=== PATIENT | female | born 1960 | race Caucasian/White ===

== ENCOUNTER 2018-06-10 06:49 | Day surgery (SDC) | payer BC ==
[~2018-06-10 06:49] MED LIST: Lactated Ringers 1,000 ML IV SCH; Lidocaine 1%/Sod Bicarbonate in NS 8.4% 1 ML Syringe IDERM PRN; Sodium Chloride 0.9% 10 ML Syringe FLUSH PRN
[2018-06-10] MEDS ORDERED: Propofol 200 MG/20 ML SDV ONE (07:14)
[2018-06-10] MEDS ORDERED: Lidocaine 1% 4 ML ONE (07:14)
[2018-06-10] MEDS ORDERED: fentaNYL 100 MCG/2 ML SDV ONE (07:14)
[2018-06-10] MEDS ORDERED: Midazolam 1 MG/ML 2 ML SDV ONE (07:14)
--- NOTE | 2018-06-10 07:26 | PCM.PREANE ---
Preanesthetic Assessment - Procedure Proposed Procedure: colonoscopy - Anesthesia/Transfusion/Family Hx Anesthesia History: Prior Anesthesia Without Reaction Family History of Anesthesia Reaction: No Transfusion History: No Prior Transfusion(s) - Review of Systems General: No Symptoms Pulmonary: No Symptoms Cardiovascular: No Symptoms Gastrointestinal: Diarrhea (occasionally) Neurological: No Symptoms Other: Reports: Diabetes - Physical Assessment NPO Status Date: 06/09/18 NPO Status Time: 23:30 Pulse: 76 O2 Sat by Pulse Oximetry: 98 Respiratory Rate: 20 Blood Pressure: 129/64 Temperature: 97.8 F Height: 5 ft 3 in Weight: 104 kg ASA Class: 2 Mental Status: Alert & Oriented x3 Airway Class: Mallampati = 1 Dentition: Reports: Partial (top and bottom), Missing Tooth/Teeth Thyro-Mental Finger Breadths: 3 Mouth Opening Finger Breadths: 3 ROM/Head Extension: Full Lungs: Clear to Auscultation, Normal Respiratory Effort Cardiovascular: Regular Rate, Regular Rhythm - Allergies Allergies/Adverse Reactions: Allergies Allergy/AdvReac Type Severity Reaction Status Date / Time cucumber Allergy throat Verified 06/09/18 14:35 closing/nausea/itchy eyes melon Allergy throat Verified 06/09/18 14:35 closing/nausea/itchy eyes pollen extracts Allergy Cannot Verified 06/09/18 14:35 Remember DUST Allergy Cannot Uncoded 06/09/18 14:35 Remember - Blood Blood Available: No - Anesthesia Plan Beta Amina: Metoprolol Med Last Dose Date: 06/10/18 Med Last Dose Time: 05:45 - Acknowledgements Anesthesia Type Planned: MAC Pt an Appropriate Candidate for the Planned Anesthesia: Yes Alternatives and Risks of Anesthesia Discussed w Pt/Guardian: Yes Pt/Guardian Understands and Agrees with Anesthesia Plan: Yes PreAnesthesia Questionnaire HEENT History: Reports: Impaired Vision Cardiovascular History: Reports: CAD (stent 2002), High Cholesterol, Hypertension Respiratory History: Reports: Sleep Apnea Gastrointestinal History: Reports: None Other Musculoskeletal History: Patient reports arthritis in bilateral feet. Neurological History: Reports: None Endocrine/Metabolic History: Reports: Diabetes, Type II, Obesity/BMI 30+ Oncologic (Cancer) History: Reports: None - Past Surgical History HEENT Surgical History: Reports: Cataract Surgery Other HEENT Surgeries/Procedures: bilateral cataract extraction woth intraocular lens' also laser eye surgery for retinopathy, also wisdom teeth extraction Other Cardiovascular Surgeries/Procedures: angiogram GI Surgical History: Reports: Colonoscopy, Other (See Below) (gastric bypass) Female Surgical History: Reports: Breast Biopsy Other Musculoskeletal Surgeries/Procedures:: Left carpal tunnel release and left ulnar nerve release 2013 done- also right carpal tunnel - SUBSTANCE USE Smoking Status *Q: Never Smoker Tobacco Use Within Last Twelve Months: No Second Hand Smoke Exposure: No Days Per Week of Alcohol Use: 1 (cup of wine a month) Recreational Drug Use History: No - HOME MEDS Home Medications: Home Meds Gabapentin 3 cap PO BID 05/29/15 [History] Insulin Aspart [NovoLOG] 0 units SQ ASDIRECTED 05/29/15 [History] Insulin Glarg,Human.Rec.Analog [LantUS Solostar] 50 units SQ BEDTIME 05/29/15 [ History] Metoprolol Tartrate [Lopressor] 1 tab PO BID 05/29/15 [History] Multivitamin [Daily Multiple Vitamin] 1 tab PO DAILY 05/29/15 [History] Simvastatin 1 tab PO QPM 05/29/15 [History] Timolol Maleate 1 drop EYEBOTH DAILY 05/29/15 [History] Valsartan [Diovan] 320 mg PO DAILY 05/29/15 [History] amLODIPine Besylate [Amlodipine Besylate] 2.5 mg PO QPM 05/29/15 [History] Aspirin [Halfprin] 81 mg PO DAILY 06/09/18 [History] Fluticasone Propionate [Flonase] 1 dose NASBOTH BID 06/09/18 [History] Liraglutide [Victoza] 1.8 mg SQ DAILY 06/09/18 [History] - CURRENT (IN HOUSE) MEDS Current Meds: Current Medications Lactated Ringer's (Ringers, Lactated) 1,000 mls @ 125 mls/hr IV ASDIRECTED RYAN Stop: 06/10/18 23:00 Lidocaine/Sodium Bicarbonate (Buffered Lidocaine 1% In Ns 8.4%) 0.25 ml IDERM ONETIME PRN PRN Reason: Prior to IV Start Stop: 06/10/18 18:00 Sodium Chloride (Saline Flush) 10 ml FLUSH ASDIRECTED PRN PRN Reason: Keep Vein Open Stop: 06/10/18 18:00 Discontinued Medications Fentanyl (Sublimaze) Confirm Administered Dose 100 mcg .ROUTE .STK-MED ONE Stop: 06/10/18 07:15 Lidocaine HCl (Xylocaine-Mpf 1%) Confirm Administered Dose 4 mls @ as directed .ROUTE .STK-MED ONE Stop: 06/10/18 07:15 Midazolam HCl (Versed 1 Mg/Ml) Confirm Administered Dose 2 mg .ROUTE .STK-MED ONE Stop: 06/10/18 07:15 Propofol (Diprivan 20 Ml) Confirm Administered Dose 200 mg .ROUTE .STK-MED ONE Stop: 06/10/18 07:15
--- NOTE | 2018-06-10 08:19 | PCM.HP ---
H&P History of Present Illness - General Date of Service: 06/10/18 Source of Information: Patient History Limitations: Reports: No Limitations - History of Present Illness Initial Comments - Free Text/Narative: 57 year old female here today for change in bowel habits with diarrhea. Last colonoscopy 9 years ago and was normal. She has had no blood in stool. She has had no recent medication changes. SHe is able to perform 4 METS of activity without chest pain. - Related Data Allergies/Adverse Reactions: Allergies Allergy/AdvReac Type Severity Reaction Status Date / Time cucumber Allergy throat Verified 06/09/18 14:35 closing/nausea/itchy eyes melon Allergy throat Verified 06/09/18 14:35 closing/nausea/itchy eyes pollen extracts Allergy Cannot Verified 06/09/18 14:35 Remember DUST Allergy Cannot Uncoded 06/09/18 14:35 Remember Home Medications: Home Meds Gabapentin 3 cap PO BID 05/29/15 [History] Insulin Aspart [NovoLOG] 0 units SQ ASDIRECTED 05/29/15 [History] Insulin Glarg,Human.Rec.Analog [LantUS Solostar] 50 units SQ BEDTIME 05/29/15 [ History] Metoprolol Tartrate [Lopressor] 1 tab PO BID 05/29/15 [History] Multivitamin [Daily Multiple Vitamin] 1 tab PO DAILY 05/29/15 [History] Simvastatin 1 tab PO QPM 05/29/15 [History] Timolol Maleate 1 drop EYEBOTH DAILY 05/29/15 [History] Valsartan [Diovan] 320 mg PO DAILY 05/29/15 [History] amLODIPine Besylate [Amlodipine Besylate] 2.5 mg PO QPM 05/29/15 [History] Aspirin [Halfprin] 81 mg PO DAILY 06/09/18 [History] Fluticasone Propionate [Flonase] 1 dose NASBOTH BID 06/09/18 [History] Liraglutide [Victoza] 1.8 mg SQ DAILY 06/09/18 [History] Past Medical History HEENT History: Reports: Impaired Vision Cardiovascular History: Reports: CAD (stent 2002), High Cholesterol, Hypertension Respiratory History: Reports: Sleep Apnea Gastrointestinal History: Reports: None Other Musculoskeletal History: Patient reports arthritis in bilateral feet. Neurological History: Reports: None Endocrine/Metabolic History: Reports: Diabetes, Type II, Obesity/BMI 30+ Oncologic (Cancer) History: Reports: None - Past Surgical History HEENT Surgical History: Reports: Cataract Surgery Other HEENT Surgeries/Procedures: bilateral cataract extraction woth intraocular lens' also laser eye surgery for retinopathy, also wisdom teeth extraction Other Cardiovascular Surgeries/Procedures: angiogram GI Surgical History: Reports: Colonoscopy, Other (See Below) (gastric bypass) Female Surgical History: Reports: Breast Biopsy Other Musculoskeletal Surgeries/Procedures:: Left carpal tunnel release and left ulnar nerve release 2013 done- also right carpal tunnel Social & Family History - Tobacco Use Smoking Status *Q: Never Smoker Second Hand Smoke Exposure: No - Caffeine Use Caffeine Use: Reports: None - Alcohol Use Days Per Week of Alcohol Use: 1 (cup of wine a month) - Recreational Drug Use Recreational Drug Use: No Drug Use in Last 12 Months: No H&P Review of Systems - Review of Systems: Review Of Systems: See Below General: Reports: No Symptoms Pulmonary: Reports: No Symptoms Cardiovascular: Reports: No Symptoms Gastrointestinal: Reports: No Symptoms Exam - Exam Exam: See Below - Vital Signs Vital Signs: Last Vital Signs Temp 36.6 C 06/10/18 07:31 Pulse 76 06/10/18 07:31 Resp 20 06/10/18 07:31 BP 129/64 06/10/18 07:31 Pulse Ox 98 06/10/18 07:31 Weight: 104.78 kg - Exam General: Alert, Oriented Neck: Supple, Trachea Midline Lungs: Clear to Auscultation, Normal Respiratory Effort Cardiovascular: Regular Rate, Regular Rhythm GI/Abdominal Exam: Normal Bowel Sounds, Soft, Non-Tender - Patient Data Lab Results Last 24 hrs: Laboratory Results - last 24 hr 06/10/18 Range/Units 07:26 POC Glucose 91 (70-105) mg/dL - Problem List (1) Change in bowel habits SNOMED Code(s): 351668460, 831353239 ICD Code: R19.4 - CHANGE IN BOWEL HABIT Status: Acute Current Visit: Yes (2) Diarrhea SNOMED Code(s): 51166697 ICD Code: R19.7 - DIARRHEA, UNSPECIFIED Status: Acute Current Visit: Yes Problem List Initiated/Reviewed/Updated: Yes Orders Last 24hrs: Active Orders 24 hr Category Date Time Status Peripheral IV Care [RC] . DIRECTED Care 06/10/18 00:01 Active Verify Patient Consent Obtain [RC] ASDIRECTED Care 06/10/18 00:01 Active Lactated Ringers [Ringers, Lactated] 1,000 ml Med 06/10/18 00:01 Active IV ASDIRECTED Lidocaine 1%/Sod Bicarbonate [Buffered Lidocaine 1% in Med 06/10/18 00:01 Active NS 8.4%] 0.25 ml IDERM ONETIME PRN Sodium Chloride 0.9% [Saline Flush] Med 06/10/18 00:01 Active 10 ml FLUSH ASDIRECTED PRN Medication Administration Instruction [OM.PC] Routine Oth 06/10/18 00:01 Ordered Peripheral IV Insertion Adult [OM.PC] Routine Oth 06/10/18 00:01 Ordered Medication Orders Lactated Ringer's (Ringers, Lactated) 1,000 mls @ 125 mls/hr IV ASDIRECTED RYAN Stop: 06/10/18 23:00 Last Admin: 06/10/18 07:38 Dose: 125 mls/hr Lidocaine/Sodium Bicarbonate (Buffered Lidocaine 1% In Ns 8.4%) 0.25 ml IDERM ONETIME PRN PRN Reason: Prior to IV Start Stop: 06/10/18 18:00 Last Admin: 06/10/18 07:38 Dose: 0.25 ml Sodium Chloride (Saline Flush) 10 ml FLUSH ASDIRECTED PRN PRN Reason: Keep Vein Open Stop: 06/10/18 18:00 Assessment/Plan Comment:: 57 year old female here today for diagnostic colonoscopy for change in bowel habits with diarrhea. We discussed benefits and risks of procedure. Proceed with colonoscopy.
--- NOTE | 2018-06-10 08:56 | PCM48HPAN ---
Post Anesthesia Note - EVALUATION WITHIN 48HRS OF ANESTHETIC Vital Signs in Normal Range: Yes Patient Participated in Evaluation: Yes Respiratory Function Stable: Yes Airway Patent: Yes Cardiovascular Function Stable: Yes Hydration Status Stable: Yes Pain Control Satisfactory: Yes Nausea and Vomiting Control Satisfactory: Yes Mental Status Recovered: Yes Pulse Rate: 72 SaO2: 93 Resp Rate: 16 Temperature: 98.1 F Blood Pressure: 98/68
--- NOTE | 2018-06-10 08:57 | PCM.OPNOTE ---
- General Post-Op/Procedure Note Date of Surgery/Procedure: 06/10/18 Operative Procedure(s): Colonoscopy with cold snare polypectomy and cold forceps biopsy Findings: 3 mm sigmoid polyp Post-Op Diagnosis: 3 mm sigmoid polyp Anesthesia Technique: MAC Primary Surgeon: Javi Hill Anesthesia Provider: Lakesha Mathur EBL in mLs: 5 Complications: None Condition: Good Free Text/Narrative:: AFter the patient gave verbal and written consent she was placed on blood pressure and pulse ox monitoring. She was given IV sedation which she tolerated well. The olympus colonoscope was inserted per rectum and advanced to the cecum without difficulty. The ileocecal valve and appendiceal orfice were imaged documenting cecal intubation. The scope was slowly withdrawn and the mucosal surfaces were carefully examined. THe prep was good, the views were good. Random cold forceps biopsy were taken throughout the colon and submitted to pathology. A 3 mm descending polyp was noted and removed with cold snare polypectomy. There was hemostasis. THe scope was then retroflexed in the rectum and removed. The patient tolerated the procedure well, there were no complications. THe patient left in satisfactory condition.
[2018-06-10 09:52] VITALS: BP 113/71
== END 2018-06-10 09:45 | disposition home or self-care (01) ==
LOC: JD.SDS 06:49
PROVIDERS: ATTEND Family Medicine
DX: R19.4 Change in bowel habit (principal); R19.7 Diarrhea, unspecified; D12.4 Benign neoplasm of descending colon; I10 Essential (primary) hypertension; I25.10 Atherosclerotic heart disease of native coronary artery without angina pectoris; G47.30 Sleep apnea, unspecified; E78.00 Pure hypercholesterolemia, unspecified; E11.9 Type 2 diabetes mellitus without complications; E66.9 Obesity, unspecified; Z68.41 Body mass index [BMI] 40.0-44.9, adult; Z79.4 Long term (current) use of insulin; Z79.82 Long term (current) use of aspirin; Z79.899 Other long term (current) drug therapy; Z91.018 Allergy to other foods; Z91.048 Other nonmedicinal substance allergy status
CPT/HCPCS: 45380; 45385; 82962; J2250; J2704; J3010; J7120; 00811; J2001

== ENCOUNTER → 2021-01-14 | Day surgery (SDC) | payer BC ==
[2021-01-14] MEDS: Brimonidine 0.2% Ophth Soln 5 ML Bottle EYERT SCH ×2 (13:00→13:48)
[2021-01-14] MEDS: Phenylephrine 2.5% Ophth Soln 2 ML Bot EYERT SCH ×2 (13:05→13:16)
[2021-01-14] MEDS: Tropicamide 1% Ophth Soln 15 ML Bottle EYERT SCH ×2 (13:10→13:20)
== END ==
LOC: JD.SDS 12:26
PROVIDERS: ATTEND Ophthalmology
DX: E11.36 Type 2 diabetes mellitus with diabetic cataract (principal); H26.491 Other secondary cataract, right eye; H02.836 Dermatochalasis of left eye, unspecified eyelid; H02.833 Dermatochalasis of right eye, unspecified eyelid; E11.3213 Type 2 diabetes mellitus with mild nonproliferative diabetic retinopathy with macular edema, bilateral; H35.373 Puckering of macula, bilateral; H16.103 Unspecified superficial keratitis, bilateral; H16.223 Keratoconjunctivitis sicca, not specified as Sjogren's, bilateral; H40.042 Steroid responder, left eye; I10 Essential (primary) hypertension; E78.00 Pure hypercholesterolemia, unspecified; Z79.4 Long term (current) use of insulin; Z79.899 Other long term (current) drug therapy; Z96.1 Presence of intraocular lens

== ENCOUNTER 2022-10-21 13:14 | Emergency (ER) | payer BC ==
[2022-10-21 13:50] VITALS: BP 144/82; PULSE 91
== END 2022-10-21 16:00 | disposition home or self-care (01) ==
LOC: JD.ED 13:14
DX: N13.2 Hydronephrosis with renal and ureteral calculous obstruction (principal); I25.10 Atherosclerotic heart disease of native coronary artery without angina pectoris; E78.00 Pure hypercholesterolemia, unspecified; I10 Essential (primary) hypertension; E11.9 Type 2 diabetes mellitus without complications; E66.9 Obesity, unspecified; M19.90 Unspecified osteoarthritis, unspecified site; Z68.39 Body mass index [BMI] 39.0-39.9, adult; Z91.018 Allergy to other foods; Z91.048 Other nonmedicinal substance allergy status; Z79.4 Long term (current) use of insulin; Z79.82 Long term (current) use of aspirin; Z79.899 Other long term (current) drug therapy
CPT/HCPCS: 36415; 74176; 74176-26; 80053; 81001; 85025; 87086; 99284

== ENCOUNTER 2023-08-05 06:33 | Day surgery (SDC) | payer BC ==
[~2023-08-05 06:33] MED LIST changes: -Lidocaine 1%/Sod Bicarbonate in NS 8.4% 1 ML Syringe IDERM PRN; +Sodium Chloride 0.9% 10 ML Syringe FLUSH SCH
[2023-08-05] MEDS ORDERED: Ondansetron 4 MG/2 ML SDV IVPUSH PRN (07:01)
[2023-08-05] MEDS ORDERED: Midazolam 1 MG/ML 2 ML SDV ONE (07:10)
[2023-08-05] MEDS ORDERED: Lidocaine 1% 4 ML ONE (07:10)
[2023-08-05] MEDS ORDERED: Propofol 200 MG/20 ML SDV ONE (07:10)
[2023-08-05 15:21] VITALS: BP 122/78; PULSE 72
== END 2023-08-05 09:24 | disposition home or self-care (01) ==
LOC: JD.SDS 06:33
PROVIDERS: ATTEND Family Medicine
DX: D12.3 Benign neoplasm of transverse colon (principal); E78.2 Mixed hyperlipidemia; R42 Dizziness and giddiness; B37.2 Candidiasis of skin and nail; E11.65 Type 2 diabetes mellitus with hyperglycemia; E78.00 Pure hypercholesterolemia, unspecified; I10 Essential (primary) hypertension; E11.42 Type 2 diabetes mellitus with diabetic polyneuropathy; G47.33 Obstructive sleep apnea (adult) (pediatric); I25.10 Atherosclerotic heart disease of native coronary artery without angina pectoris; E11.319 Type 2 diabetes mellitus with unspecified diabetic retinopathy without macular edema; E66.01 Morbid (severe) obesity due to excess calories; Z91.018 Allergy to other foods; Z79.4 Long term (current) use of insulin; Z79.899 Other long term (current) drug therapy; Z79.84 Long term (current) use of oral hypoglycemic drugs; Z79.82 Long term (current) use of aspirin; Z68.39 Body mass index [BMI] 39.0-39.9, adult; Z95.5 Presence of coronary angioplasty implant and graft
CPT/HCPCS: 45380; 82947; J2250; J2704; J7120; 00811; J3490